=== PATIENT | male | born 1970 | race Caucasian/White ===

== ENCOUNTER → 2018-12-21 | Outpatient (CLI) | payer MEDICAID, OTHER ==
[~2018-12-21] MED LIST: /ADVA50050; ALBU83IN; GABA300T; HYDR50TA8; NICO21DI4; TRAM50TA2; VENTAER
--- NOTE | 2018-12-21 11:08 | REP ---
Chest two views HISTORY: Wheezing Comparison: 12/15/2012 Minimal peribronchial cuffing is present. The heart is normal in size. The pulmonary vasculature is normal in appearance. The bony structure is intact. IMPRESSION: There is minimal peribronchial cuffing consistent with asthma or bronchitis. Electronically Signed by Roque Bridges MD 12/21/2018 11:00 A
== END ==
LOC: M RAD 10:15
PROVIDERS: ATTEND Family Medicine
DX: R06.2 Wheezing (principal)

== ENCOUNTER → 2020-05-07 | Outpatient (CLI) | payer MEDICAID, OTHER ==
[~2020-05-07] MED LIST changes: -/ADVA50050; +ADVA1AER2
--- NOTE | 2020-05-07 13:27 | PFTRPT ---
Visit Date: 05/07/2020 Referring Doctor: MD Yepez David Height: 73.00 Inches Weight: 240.00 Lbs BSA: 2.33 Diagnosis: R06 Pre and postbronchodilator study of excellent technical quality. Forced vital capacity reduced. FEV1 out of proportion. Obstructive index is therefore reduced. Expiratory limb of the flow volume loop does suggest some degree of flow rate limitation. Only borderline bronchodilator response is identified. Total lung capacity is normal. Residual volume suggests air trapping. Diffusing capacity is reduced, but is appropriate for alveolar volume. Hemoglobin acceptable at 12.6. Airways resistance is elevated with concomitant decrease in airway conductance. IMPRESSION: Underlying obstructive ventilatory impairment with concomitant air trapping. Mild diffusing capacity appropriate for alveolar volume. Please correlate clinically. MTDD
== END ==
LOC: M CARPUL 12:12
PROVIDERS: ATTEND Internal Medicine Cardiovascular Disease
DX: R06.00 Dyspnea, unspecified (principal)

== ENCOUNTER → 2020-12-19 | Outpatient (CLI) | payer OTHER ==
--- NOTE | 2020-12-19 10:20 | REP ---
INDICATION: M25.522 PAIN IN LT ELBOW. COMPARISON: None. TECHNIQUE: Four views of the left elbow are presented. FINDINGS: Four views of the left elbow demonstrate osteoarthritic spurring at the radiocapitellar and ulnar trochlear articulation. There are at least 2 large osteophytic bodies which may be loose bodies. 1 of these is anterior measuring 12 mm in greatest diameter and the other is posterior measuring 13 mm in greatest diameter. Positioning is less than optimal due to the patient's lack of range of motion. No definite joint effusion.. No fracture or subluxation is seen. No opaque foreign body noted. 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 No fracture or other acute bony abnormality seen.. <Electronically signed by Rodo Tello > 12/19/20 1010
== END ==
LOC: M WUC 09:46
PROVIDERS: ATTEND Physician Assistant
DX: M19.022 Primary osteoarthritis, left elbow (principal)

== ENCOUNTER → 2022-09-06 | Outpatient (CLI) | payer OTHER ==
[2022-09-06 13:06] LABS: BASO # 0.1 10^3/uL (0.0-0.2); BASO % 1.3 % (0.0-1.0); EOS # 0.2 10^3/uL (0.0-0.5); EOS % 1.9 % (0.0-3.0); HEMATOCRIT 48.4 % (42.0-52.0); HEMOGLOBIN 15.6 g/dl (13.5-17.5); LYMPH # 2.1 10^3/uL (1.5-5.0); LYMPH % 26.2 % (24.0-44.0); MEAN CORPUSCULAR HEMOGLOBIN 30.5 pg (27.0-33.0); MEAN CORPUSCULAR HGB CONC 32.2 g/dl (32.0-36.5); MEAN CORPUSCULAR VOLUME 94.5 fl (80.0-96.0); MONO # 0.9 10^3/uL (0.0-0.8); MONO % 11.2 % (2.0-8.0); NEUTROPHILS # 4.6 10^3/uL (1.5-8.5); NEUTROPHILS % 58.9 % (36.0-66.0); PLATELET COUNT, AUTOMATED 300 10^3/uL (150-450); RED BLOOD COUNT 5.12 10^6/uL (4.30-6.10); WHITE BLOOD COUNT 7.9 10^3/uL (4.0-10.0)
[2022-09-06 16:28] LABS: ALBUMIN 3.8 GM/DL (3.2-5.2); ALT/SGPT 28 U/L (12-78); BILIRUBIN,TOTAL 0.4 MG/DL (0.2-1.0); BLOOD UREA NITROGEN 18 MG/DL (7-18); CALCIUM LEVEL 9.8 MG/DL (8.5-10.1); CARBON DIOXIDE LEVEL 28 MEQ/L (21-32); CHLORIDE LEVEL 105 MEQ/L (98-107); CHOLESTEROL LEVEL 151 MG/DL (<200); CHOLESTEROL RISK RATIO 3.595 (<5); CREATININE FOR GFR 1.03 MG/DL (0.70-1.30); GLOMERULAR FILTRATION RATE > 60.0 (>60); GLUCOSE, FASTING 87 MG/DL (70-100); HDL CHOLESTEROL 42 MG/DL (>40); LDL CHOLESTEROL 80 MG/DL (<100); NON-HDL-C 109 MG/DL; POTASSIUM SERUM 4.3 MEQ/L (3.5-5.1); SODIUM LEVEL 138 MEQ/L (136-145); TOTAL PROTEIN 6.9 GM/DL (6.4-8.2); TRIGLYCERIDES LEVEL 145 MG/DL (<150)
== END ==
LOC: M WUC 09:05
PROVIDERS: ATTEND Physician Assistant
DX: E78.2 Mixed hyperlipidemia (principal); Z68.36 Body mass index [BMI] 36.0-36.9, adult; M24.442 Recurrent dislocation, left hand

== ENCOUNTER → 2023-02-14 | Outpatient (CLI) | payer OTHER | LOC: M PLAIMG 13:57 | PROVIDERS: ATTEND Pain Medicine Interventional Pain Medicine | DX: M54.16 Radiculopathy, lumbar region (principal) ==

== ENCOUNTER → 2023-03-04 | Outpatient (CLI) | payer OTHER | LOC: M RAD 06:34 | PROVIDERS: ATTEND Pain Medicine Interventional Pain Medicine | DX: M54.2 Cervicalgia (principal) ==

== ENCOUNTER → 2023-04-15 | Outpatient (CLI) | payer OTHER ==
[~2023-04-15] MED LIST changes: +ISOVUE-370 76% 100ML VIAL As Ordered ONE
== END ==
LOC: M RAD 08:51
PROVIDERS: ATTEND Otolaryngology
DX: K13.79 Other lesions of oral mucosa (principal)
CPT/HCPCS: 70491; Q9967

== ENCOUNTER 2023-05-19 09:00 | Day surgery (SDC) | payer OTHER ==
[~2023-05-19] VITALS: Ht 182.9 cm; Wt 118.1 kg
[~2023-05-19 09:00] MED LIST changes: +ACET500T15 PO; +IBUP200C90 PO; -ISOVUE-370 76% 100ML VIAL As Ordered ONE; +NS 1,000 ML IV ONE
[2023-05-19] MEDS ORDERED: BUDE10.7 IH (09:34)
[2023-05-19] MEDS ORDERED: ALBU2.5V10 INH (09:34)
[2023-05-19] MEDS ORDERED: LIDOCAINE 2% 100MG/5ML SDV (FOR ANES.) As Ordered ONE (10:09)
[2023-05-19] MEDS ORDERED: propofoL 500 MG/50 ML VIAL As Ordered ONE ×2 (10:09→10:34)
[2023-05-19 10:36] VITALS: TEMP 97.5
[2023-05-19 10:50] VITALS: BP 151/82; O2SAT 97
== END 2023-05-19 10:56 | disposition home or self-care (01) ==
LOC: M OPP 09:00
PROVIDERS: ATTEND Surgery
DX: Z12.11 Encounter for screening for malignant neoplasm of colon (principal); D12.6 Benign neoplasm of colon, unspecified; F17.200 Nicotine dependence, unspecified, uncomplicated

== ENCOUNTER → 2023-06-02 | Outpatient (CLI) | payer OTHER ==
[~2023-06-02] MED LIST changes: +ALBU2.5V10 INH; +BUDE10.7 IH; -NS 1,000 ML IV ONE
== END ==
LOC: M WUC 14:37
PROVIDERS: ATTEND Family Medicine
DX: S60.414A Abrasion of right ring finger, initial encounter (principal); Y93.9 Activity, unspecified; Y92.9 Unspecified place or not applicable

== ENCOUNTER → 2023-06-22 | Outpatient (CLI) | payer OTHER ==
[~2023-06-22] MED LIST changes: +GASTROGRAFIN SOLUTION 30ML As Ordered ONE; +ISOVUE-370 76% 100ML VIAL As Ordered ONE
== END ==
LOC: M RAD 08:03
PROVIDERS: ATTEND Physician Assistant
DX: R14.0 Abdominal distension (gaseous) (principal); R68.81 Early satiety
CPT/HCPCS: 74178; Q9963; Q9967

== ENCOUNTER 2023-06-27 06:07 | Day surgery (SDC) | payer OTHER ==
[~2023-06-27] VITALS: Ht 182.9 cm; Wt 117.9 kg
[~2023-06-27 06:07] MED LIST changes: +CEPH500C PO; +EXCETAB32 PO; -GASTROGRAFIN SOLUTION 30ML As Ordered ONE; -ISOVUE-370 76% 100ML VIAL As Ordered ONE; +LISI10TA24 PO; +NYST1CRE15 TOP; +ROSU20TA61 PO
[2023-06-27] MEDS ORDERED: KETOROLAC 60MG 2ML VIAL As Ordered ONE (06:57)
[2023-06-27] MEDS ORDERED: ONDANSETRON 4MG 2ML VIAL As Ordered ONE (06:57)
[2023-06-27] MEDS ORDERED: LIDOCAINE 2% 100MG/5ML SDV (FOR ANES.) As Ordered ONE (06:57)
[2023-06-27] MEDS ORDERED: propofoL 200 MG/20 ML VIAL As Ordered ONE (06:57)
[2023-06-27] MEDS ORDERED: fentaNYL 100 MCG/2 ML INJECTION As Ordered ONE (06:58)
[2023-06-27] MEDS ORDERED: MIDAZOLAM INJ 2MG/2ML VIAL As Ordered ONE (06:58)
[2023-06-27 07:02] LABS: HEMATOCRIT 49.4 % (42.0-52.0); HEMOGLOBIN 16.2 g/dl (13.5-17.5); MEAN CORPUSCULAR HEMOGLOBIN 29.5 pg (27.0-33.0); MEAN CORPUSCULAR HGB CONC 32.8 g/dl (32.0-36.5); PLATELET COUNT, AUTOMATED 258 10^3/uL (150-450); RED BLOOD COUNT 5.49 10^6/uL (4.30-6.10); WHITE BLOOD COUNT 7.8 10^3/uL (4.0-10.0)
[2023-06-27 07:15] LABS: BLOOD UREA NITROGEN 17 MG/DL (9-23); CALCIUM LEVEL 9.7 MG/DL (8.5-10.1); CARBON DIOXIDE LEVEL 28 MMOL/L (20-31); CHLORIDE LEVEL 105 MMOL/L (98-107); CREATININE FOR GFR 0.97 MG/DL (0.70-1.30); GLOMERULAR FILTRATION RATE > 60.0 (>56); GLUCOSE, FASTING 105 MG/DL (60-100); POTASSIUM SERUM 4.1 MMOL/L (3.5-5.1); SODIUM LEVEL 137 MMOL/L (136-145)
[2023-06-27] MEDS ORDERED: BACITRACIN OINTMENT 30GM TUBE As Ordered ONE (07:15)
[2023-06-27] MEDS ORDERED: ceFAZolin 2 GM/D5W 50 ML IV BAG As Ordered ONE (07:46)
[2023-06-27] MEDS ORDERED: LR 1,000 ML IV SCH (08:35)
[2023-06-27] MEDS ORDERED: LIDOCAINE 1% SDV 5ML VIAL SC PRN (08:35)
[2023-06-27] MEDS ORDERED: CEPH500T PO (08:51)
[2023-06-27] MEDS ORDERED: PERC5TAB12 PO (08:51)
[2023-06-27 09:52] VITALS: BP 140/69; TEMP 97.4; O2SAT 95
== END 2023-06-27 09:52 | disposition home or self-care (01) ==
LOC: M SDC 06:07
PROVIDERS: ATTEND Orthopaedic Surgery Hand Surgery
DX: M85.841 Other specified disorders of bone density and structure, right hand (principal); B95.7 Other staphylococcus as the cause of diseases classified elsewhere; S60.944A Unspecified superficial injury of right ring finger, initial encounter; X58.XXXA Exposure to other specified factors, initial encounter; Y92.89 Other specified places as the place of occurrence of the external cause; G47.30 Sleep apnea, unspecified
CPT/HCPCS: 11044; 36415; 76000; 80048; 85027; 87070; 87075; 87077; 87186; 87205; 93005; J0665; J0690; J1100; J1885; J2250; J2405; J3010

== ENCOUNTER → 2023-07-07 | Outpatient (CLI) | payer OTHER ==
[~2023-07-07] MED LIST changes: +CEPH500T PO; +PERC5TAB12 PO
== END ==
LOC: M SOG 13:27
PROVIDERS: ATTEND Physician Assistant
DX: S60.94 Unspecified superficial injury of other fingers (principal)

== ENCOUNTER → 2023-07-19 | Outpatient (CLI) | payer OTHER ==
[2023-07-19 14:19] LABS: BASO # 0.1 10^3/uL (0.0-0.2); BASO % 0.7 % (0.0-1.0); EOS # 0.2 10^3/uL (0.0-0.5); EOS % 1.9 % (0.0-3.0); HEMATOCRIT 48.5 % (42.0-52.0); HEMOGLOBIN 15.7 g/dl (13.5-17.5); LYMPH # 2.3 10^3/uL (1.5-5.0); LYMPH % 26.9 % (24.0-44.0); MEAN CORPUSCULAR HEMOGLOBIN 30.1 pg (27.0-33.0); MEAN CORPUSCULAR HGB CONC 32.4 g/dl (32.0-36.5); MEAN CORPUSCULAR VOLUME 92.9 fl (80.0-96.0); MONO # 0.9 10^3/uL (0.0-0.8); MONO % 10.8 % (2.0-8.0); NEUTROPHILS % 59.2 % (36.0-66.0); PLATELET COUNT, AUTOMATED 262 10^3/uL (150-450); RED BLOOD COUNT 5.22 10^6/uL (4.30-6.10); WHITE BLOOD COUNT 8.4 10^3/uL (4.0-10.0)
[2023-07-19 14:47] LABS: ERYTHROCYTE SEDIMENTATION RATE 15 mm/hr (0-20)
[2023-07-19 14:59] LABS: HEPATITIS C VIRUS ABY INDEX 0.12 INDEX (<0.8)
[2023-07-19 15:03] LABS: HEMOGLOBIN A1c 5.3 % (4.0-6.0)
== END ==
LOC: M PLALAB 10:05
PROVIDERS: ATTEND Internal Medicine Infectious Disease
DX: L81.8 Other specified disorders of pigmentation (principal); M86.9 Osteomyelitis, unspecified

== ENCOUNTER → 2023-08-08 | Outpatient (CLI) | payer OTHER ==
[~2023-08-08] MED LIST changes: +DOXY-444 PO; +KETO10TAB PO; +METH-1165 PO
== END ==
LOC: M SOG 08:03
PROVIDERS: ATTEND Physician Assistant
DX: S60.94 Unspecified superficial injury of other fingers (principal)

== ENCOUNTER 2023-08-10 07:29 | Day surgery (SDC) | payer OTHER ==
[~2023-08-10] VITALS: Ht 185.4 cm; Wt 118.4 kg
[~2023-08-10 07:29] MED LIST changes: +NS 1,000 ML IV ONE
[2023-08-10] MEDS ORDERED: propofoL 500 MG/50 ML VIAL As Ordered ONE (09:26)
[2023-08-10] MEDS ORDERED: fentaNYL 100 MCG/2 ML INJECTION As Ordered ONE (09:26)
[2023-08-10] MEDS ORDERED: LIDOCAINE 2% 100MG/5ML SDV (FOR ANES.) As Ordered ONE (09:26)
[2023-08-10 09:44] VITALS: TEMP 97.4
[2023-08-10 10:05] VITALS: BP 140/78; O2SAT 96
== END 2023-08-10 10:16 | disposition home or self-care (01) ==
LOC: M OPP 07:29
PROVIDERS: ATTEND Surgery
DX: K44.9 Diaphragmatic hernia without obstruction or gangrene (principal); K29.70 Gastritis, unspecified, without bleeding; K26.9 Duodenal ulcer, unspecified as acute or chronic, without hemorrhage or perforation; K25.9 Gastric ulcer, unspecified as acute or chronic, without hemorrhage or perforation; R10.84 Generalized abdominal pain; R14.0 Abdominal distension (gaseous)
CPT/HCPCS: 43239; 88305; J3010

== ENCOUNTER → 2023-08-23 | Outpatient (CLI) | payer OTHER ==
[~2023-08-23] MED LIST changes: -NS 1,000 ML IV ONE
[2023-08-23 13:19] LABS: BASO # 0.1 10^3/uL (0.0-0.2); BASO % 1.3 % (0.0-1.0); EOS # 0.1 10^3/uL (0.0-0.5); EOS % 1.9 % (0.0-3.0); HEMATOCRIT 48.6 % (42.0-52.0); HEMOGLOBIN 16.1 g/dl (13.5-17.5); LYMPH # 2.5 10^3/uL (1.5-5.0); LYMPH % 33.3 % (24.0-44.0); MEAN CORPUSCULAR HEMOGLOBIN 30.2 pg (27.0-33.0); MEAN CORPUSCULAR HGB CONC 33.1 g/dl (32.0-36.5); MEAN CORPUSCULAR VOLUME 91.2 fl (80.0-96.0); MONO # 0.9 10^3/uL (0.0-0.8); MONO % 12.4 % (2.0-8.0); NEUTROPHILS # 3.8 10^3/uL (1.5-8.5); NEUTROPHILS % 50.8 % (36.0-66.0); PLATELET COUNT, AUTOMATED 270 10^3/uL (150-450); RED BLOOD COUNT 5.33 10^6/uL (4.30-6.10); WHITE BLOOD COUNT 7.4 10^3/uL (4.0-10.0)
== END ==
LOC: M WUC 09:59
PROVIDERS: ATTEND Internal Medicine Infectious Disease
DX: M86.9 Osteomyelitis, unspecified (principal)

== ENCOUNTER → 2023-09-01 | Outpatient (CLI) | payer OTHER | LOC: M SOG 07:47 | PROVIDERS: ATTEND Physician Assistant | DX: S60.94 Unspecified superficial injury of other fingers (principal); W18.30XD Fall on same level, unspecified, subsequent encounter ==

== ENCOUNTER → 2023-11-16 | Outpatient (REF) | LOC: M PLAIMG 13:32 | PROVIDERS: ATTEND Internal Medicine | DX: M41.87 Other forms of scoliosis, lumbosacral region (principal); M47.897 Other spondylosis, lumbosacral region; M19.022 Primary osteoarthritis, left elbow ==

== ENCOUNTER → 2024-01-21 | Outpatient (CLI) | payer OTHER | LOC: M RAD 12:41 | PROVIDERS: ATTEND Physician Assistant | DX: M51.36 Other intervertebral disc degeneration, lumbar region (principal); M47.816 Spondylosis without myelopathy or radiculopathy, lumbar region ==

== ENCOUNTER 2024-04-03 08:51 | Emergency (ER) | payer OTHER ==
[~2024-04-03] VITALS: Ht 182.9 cm; Wt 121.2 kg
[~2024-04-03 08:51] MED LIST changes: +DOXY-440 PO; -DOXY-444 PO
[2024-04-03 08:52] VITALS: BP 166/77; TEMP 96.9; O2SAT 98
[2024-04-03] MEDS ORDERED: NAPR375T5 PO (08:59)
[2024-04-03] MEDS ORDERED: OMEP40CA4 PO (08:59)
[2024-04-03] MEDS ORDERED: CELE1CAP99 PO (08:59)
[2024-04-03] MEDS ORDERED: LINZ290C PO (08:59)
[2024-04-03] MEDS ORDERED: CYCL25CA5 PO (08:59)
[2024-04-03] MEDS ORDERED: BUPR-69 PO (08:59)
[2024-04-03] MEDS ORDERED: AMIT50TA PO (08:59)
[2024-04-03] MEDS: DOXYCYCLINE HYCLATE 100 MG in D5W MINI-BAG PLUS 100 ML IV ONE (12:13)
[2024-04-03] MEDS ORDERED: ISOVUE-370 76% 100ML VIAL As Ordered ONE (12:28)
[2024-04-03 12:55] LABS: BASO # 0.1 10^3/uL (0.0-0.2); EOS # 0.2 10^3/uL (0.0-0.5); EOS % 2.3 % (0.0-3.0); HEMATOCRIT 47.9 % (42.0-52.0); HEMOGLOBIN 16.1 g/dl (13.5-17.5); LYMPH # 2.3 10^3/uL (1.5-5.0); LYMPH % 26.4 % (24.0-44.0); MEAN CORPUSCULAR HEMOGLOBIN 30.4 pg (27.0-33.0); MEAN CORPUSCULAR HGB CONC 33.6 g/dl (32.0-36.5); MEAN CORPUSCULAR VOLUME 90.5 fl (80.0-96.0); MONO # 0.9 10^3/uL (0.0-0.8); MONO % 10.1 % (2.0-8.0); NEUTROPHILS # 5.3 10^3/uL (1.5-8.5); RED BLOOD COUNT 5.29 10^6/uL (4.30-6.10); WHITE BLOOD COUNT 8.8 10^3/uL (4.0-10.0)
[2024-04-03] MEDS: LIDOCAINE 1% MDV 20ML VIAL SC ONE (13:40)
[2024-04-03] MEDS ORDERED: DOXY-323 PO (14:26)
[2024-04-03 14:33] LABS: PLATELET COUNT, AUTOMATED 234 10^3/uL (150-450)
== END 2024-04-03 14:39 | disposition home or self-care (01) ==
LOC: M ED 09:51
DX: L02.214 Cutaneous abscess of groin (principal); F17.210 Nicotine dependence, cigarettes, uncomplicated; Z79.51 Long term (current) use of inhaled steroids; Z79.899 Other long term (current) drug therapy; Z79.2 Long term (current) use of antibiotics
CPT/HCPCS: 72193; 80047; 85025; 87070; 87076; 87205; 96374; 99283; Q9967

== ENCOUNTER → 2024-04-13 | Outpatient (CLI) | payer OTHER ==
[~2024-04-13] MED LIST changes: +AMIT50TA PO; +BUPR-69 PO; +CELE1CAP99 PO; +CYCL25CA5 PO; +DOXY-323 PO; +LINZ290C PO; +NAPR375T5 PO; +OMEP40CA4 PO
== END ==
LOC: M WUC 11:59
PROVIDERS: ATTEND Family Medicine
DX: J44.9 Chronic obstructive pulmonary disease, unspecified (principal); R06.02 Shortness of breath

== ENCOUNTER → 2024-06-19 | Outpatient (CLI) | payer OTHER ==
[2024-06-19 13:18] LABS: BASO # 0.1 10^3/uL (0.0-0.2); BASO % 1.1 % (0.0-1.0); EOS # 0.2 10^3/uL (0.0-0.5); EOS % 1.9 % (0.0-3.0); HEMOGLOBIN 15.1 g/dl (13.5-17.5); LYMPH # 2.4 10^3/uL (1.5-5.0); LYMPH % 30.6 % (24.0-44.0); MEAN CORPUSCULAR HGB CONC 32.8 g/dl (32.0-36.5); MEAN CORPUSCULAR VOLUME 91.5 fl (80.0-96.0); MONO # 0.8 10^3/uL (0.0-0.8); MONO % 9.8 % (2.0-8.0); NEUTROPHILS # 4.4 10^3/uL (1.5-8.5); NEUTROPHILS % 56.3 % (36.0-66.0); PLATELET COUNT, AUTOMATED 277 10^3/uL (150-450); RED BLOOD COUNT 5.03 10^6/uL (4.30-6.10); WHITE BLOOD COUNT 7.9 10^3/uL (4.0-10.0)
[2024-06-19 13:20] LABS: APPEARANCE, URINE CLEAR (CLEAR); BACTERIA, URINE AUTO NEGATIVE (NEGATIVE); BILIRUBIN, URINE AUTO NEGATIVE (NEGATIVE); BLOOD, URINE BLOOD NEGATIVE (NEGATIVE); COLOR, URINE YELLOW (YELLOW); GLUCOSE, URINE (UA) AUTO NEGATIVE (NEGATIVE); KETONE, URINE AUTO NEGATIVE (NEGATIVE); LEUKOCYTE ESTERASE, URINE AUTO NEGATIVE (NEGATIVE); MUCUS, URINE SMALL (NEGATIVE); NITRITE, URINE AUTO NEGATIVE (NEGATIVE); PROTEIN, URINE AUTO NEGATIVE (NEGATIVE); RBC, URINE AUTO 1 /HPF (0-3); SPECIFIC GRAVITY URINE AUTO 1.015 (1.002-1.035); SQUAMOUS EPITHELIAL CELL UR AU 0 /HPF (0-6); UROBILINOGEN, URINE AUTO 0.2 mg/dL (0.0-2.0); WBC, URINE AUTO 0 /HPF (0-3)
[2024-06-19 13:52] LABS: ALBUMIN 4.1 G/DL (3.2-5.2); ALKALINE PHOSPHATASE 98 U/L (46-116); ALT/SGPT 35 U/L (7.0-40); AST/SGOT 20 U/L (<34); BILIRUBIN,TOTAL 0.7 MG/DL (0.3-1.2); BLOOD UREA NITROGEN 23 MG/DL (9-23); CALCIUM LEVEL 9.4 MG/DL (8.5-10.1); CARBON DIOXIDE LEVEL 29 MMOL/L (20-31); CHLORIDE LEVEL 105 MMOL/L (98-107); CHOLESTEROL LEVEL 99 MG/DL (<200); CHOLESTEROL RISK RATIO 3.35 (<5); CREATININE FOR GFR 1.19 MG/DL (0.70-1.30); GLOMERULAR FILTRATION RATE > 60.0 (>56); GLUCOSE, FASTING 113 MG/DL (60-100); HDL CHOLESTEROL 29.5 MG/DL (>40); LDL CHOLESTEROL 44.1 MG/DL (<100); NON-HDL-C 69.5 MG/DL; POTASSIUM SERUM 3.9 MMOL/L (3.5-5.1); SODIUM LEVEL 137 MMOL/L (136-145); TOTAL PROTEIN 6.6 G/DL (5.7-8.2); TRIGLYCERIDES LEVEL 127 MG/DL (<150)
== END ==
LOC: M PLALAB 10:34
PROVIDERS: ATTEND Family Medicine
DX: J44.9 Chronic obstructive pulmonary disease, unspecified (principal); I10 Essential (primary) hypertension; E78.5 Hyperlipidemia, unspecified

== ENCOUNTER → 2024-07-05 | Outpatient (CLI) | payer MEDICAID, OTHER | LOC: M RAD 07:51 | PROVIDERS: ATTEND Physician Assistant | DX: F17.218 Nicotine dependence, cigarettes, with other nicotine-induced disorders (principal) ==

== ENCOUNTER → 2024-09-20 | Outpatient (CLI) | payer OTHER ==
[~2024-09-20] MED LIST changes: -DOXY-323 PO; +DOXY-441 PO; +NAPR-1450 PO; -NAPR375T5 PO; -ROSU20TA61 PO; +ROSU20TA86 PO
[2024-09-20 14:42] LABS: APPEARANCE, URINE CLEAR (CLEAR); BACTERIA, URINE AUTO NEGATIVE (NEGATIVE); BILIRUBIN, URINE AUTO NEGATIVE (NEGATIVE); BLOOD, URINE BLOOD NEGATIVE (NEGATIVE); COLOR, URINE YELLOW (YELLOW); GLUCOSE, URINE (UA) AUTO 1+ mg/dL (NEGATIVE); KETONE, URINE AUTO NEGATIVE (NEGATIVE); LEUKOCYTE ESTERASE, URINE AUTO NEGATIVE (NEGATIVE); MUCUS, URINE SMALL (NEGATIVE); NITRITE, URINE AUTO NEGATIVE (NEGATIVE); PROTEIN, URINE AUTO NEGATIVE (NEGATIVE); RBC, URINE AUTO 0 /HPF (0-3); SPECIFIC GRAVITY URINE AUTO 1.014 (1.002-1.035); SQUAMOUS EPITHELIAL CELL UR AU 0 /HPF (0-6); UROBILINOGEN, URINE AUTO 0.2 mg/dL (0.0-2.0); WBC, URINE AUTO 0 /HPF (0-3)
[2024-09-20 14:43] LABS: BASO # 0.1 10^3/uL (0.0-0.2); BASO % 1.1 % (0.0-1.0); EOS # 0.2 10^3/uL (0.0-0.5); EOS % 2.1 % (0.0-3.0); HEMOGLOBIN 15.7 g/dl (13.5-17.5); LYMPH # 2.4 10^3/uL (1.5-5.0); LYMPH % 30.5 % (24.0-44.0); MEAN CORPUSCULAR HEMOGLOBIN 30.1 pg (27.0-33.0); MEAN CORPUSCULAR HGB CONC 32.7 g/dl (32.0-36.5); MEAN CORPUSCULAR VOLUME 92.1 fl (80.0-96.0); MONO % 12.1 % (2.0-8.0); NEUTROPHILS # 4.3 10^3/uL (1.5-8.5); NEUTROPHILS % 53.8 % (36.0-66.0); PLATELET COUNT, AUTOMATED 294 10^3/uL (150-450); RED BLOOD COUNT 5.21 10^6/uL (4.30-6.10)
[2024-09-20 15:15] LABS: ALKALINE PHOSPHATASE 107 U/L (40-129); ALT/SGPT 26 U/L (7.0-40); AST/SGOT 13 U/L (<34); BILIRUBIN,TOTAL 0.3 MG/DL (0.3-1.2); BLOOD UREA NITROGEN 20 MG/DL (9-23); CALCIUM LEVEL 9.7 MG/DL (8.5-10.1); CARBON DIOXIDE LEVEL 29 MMOL/L (20-31); CHLORIDE LEVEL 105 MMOL/L (98-107); CHOLESTEROL LEVEL 128 MG/DL (<200); CHOLESTEROL RISK RATIO 3.47 (<5); CREATININE FOR GFR 1.12 MG/DL (0.70-1.30); GLOMERULAR FILTRATION RATE > 60.0 (>56); GLUCOSE, FASTING 86 MG/DL (60-100); HDL CHOLESTEROL 36.8 MG/DL (>40); LDL CHOLESTEROL 60.8 MG/DL (<100); NON-HDL-C 91.2 MG/DL; POTASSIUM SERUM 4.2 MMOL/L (3.5-5.1); PROSTATIC SPECIFIC AG MONITOR 0.68 NG/ML (< 4.00); SODIUM LEVEL 138 MMOL/L (136-145); TOTAL PROTEIN 7.2 G/DL (5.7-8.2); TRIGLYCERIDES LEVEL 152 MG/DL (<150)
== END ==
LOC: M PLALAB 10:38
PROVIDERS: ATTEND Family Medicine
DX: E78.5 Hyperlipidemia, unspecified (principal)

== ENCOUNTER → 2025-07-16 | Outpatient (CLI) | payer MEDICARE, OTHER ==
[2025-07-16 15:42] LABS: BASO # 0.1 10^3/uL (0.0-0.2); BASO % 1.2 % (0.0-1.0); EOS # 0.1 10^3/uL (0.0-0.5); EOS % 1.3 % (0.0-3.0); LYMPH # 1.4 10^3/uL (1.5-5.0); LYMPH % 18.9 % (24.0-44.0); MONO # 0.6 10^3/uL (0.0-0.8); MONO % 8.3 % (2.0-8.0); NEUTROPHILS # 5.3 10^3/uL (1.5-8.5); NEUTROPHILS % 69.9 % (36.0-66.0); PLATELET COUNT, AUTOMATED 303 10^3/uL (150-450)
[2025-07-16 16:04] LABS: ESTIMATED AVERAGE GLUCOSE 126.0 MG/DL (60-110)
[2025-07-16 16:13] LABS: CREATININE, URINE 24.6 MG/DL
[2025-07-16 16:14] LABS: MALB URINE SIEMENS < 3.0 MG/L
[2025-07-16 16:15] LABS: ALT/SGPT 32.0 U/L (7.0-40); AST/SGOT 21.0 U/L (<34); CALCIUM LEVEL 9.3 MG/DL (8.5-10.1); CARBON DIOXIDE LEVEL 30.0 MMOL/L (20-31); CHLORIDE LEVEL 103.0 MMOL/L (98-107); CHOLESTEROL LEVEL 107.0 MG/DL (<200); CHOLESTEROL RISK RATIO 2.89 (<5); CREATININE FOR GFR 1.26 MG/DL (0.70-1.30); GLOMERULAR FILTRATION RATE 68.6 (>56); LDL CHOLESTEROL 48.3 MG/DL (<100); NON-HDL-C 70.1 MG/DL; POTASSIUM SERUM 4.1 MMOL/L (3.5-5.1); SODIUM LEVEL 138.0 MMOL/L (136-145); TRIGLYCERIDES LEVEL 109.0 MG/DL (<150)
== END ==
LOC: M WUC 10:59
PROVIDERS: ATTEND Family Medicine
DX: I10 Essential (primary) hypertension (principal); E78.5 Hyperlipidemia, unspecified; J44.9 Chronic obstructive pulmonary disease, unspecified; R73.09 Other abnormal glucose

== ENCOUNTER → 2025-08-01 | Outpatient (CLI) | payer MEDICARE | LOC: M RAD 07:21 | PROVIDERS: ATTEND Physician Assistant | DX: F17.218 Nicotine dependence, cigarettes, with other nicotine-induced disorders (principal) ==

== ENCOUNTER → 2025-09-03 | Outpatient (CLI) | payer MEDICARE, MEDICAID | LOC: M PLAIMG 06:42 | PROVIDERS: ATTEND Pain Medicine Interventional Pain Medicine | DX: M54.12 Radiculopathy, cervical region (principal); M47.814 Spondylosis without myelopathy or radiculopathy, thoracic region ==

== ENCOUNTER → 2025-10-22 | Outpatient (CLI) | payer MEDICARE, MEDICAID ==
[2025-10-22 13:35] LABS: ALT/SGPT 30.0 U/L (7.0-40); AST/SGOT 20.0 U/L (<34); CALCIUM LEVEL 9.4 MG/DL (8.5-10.1); CARBON DIOXIDE LEVEL 29.0 MMOL/L (20-31); CHLORIDE LEVEL 103.0 MMOL/L (98-107); CREATININE FOR GFR 1.13 MG/DL (0.70-1.30); GLOMERULAR FILTRATION RATE 78.2 (>56); POTASSIUM SERUM 3.9 MMOL/L (3.5-5.1); SODIUM LEVEL 138.0 MMOL/L (136-145)
[2025-10-22 13:39] LABS: BASO # 0.1 10^3/uL (0.0-0.2); BASO % 1.4 % (0.0-1.0); EOS # 0.2 10^3/uL (0.0-0.5); EOS % 2.3 % (0.0-3.0); LYMPH # 2.2 10^3/uL (1.5-5.0); LYMPH % 33.1 % (24.0-44.0); MONO # 0.5 10^3/uL (0.0-0.8); MONO % 7.9 % (2.0-8.0); NEUTROPHILS # 3.6 10^3/uL (1.5-8.5); NEUTROPHILS % 55.0 % (36.0-66.0); PLATELET COUNT, AUTOMATED 305 10^3/uL (150-450)
[2025-10-22 13:52] LABS: APPEARANCE, URINE HAZY (CLEAR); BACTERIA, URINE AUTO NEGATIVE (NEGATIVE); BILIRUBIN, URINE AUTO NEGATIVE (NEGATIVE); BLOOD, URINE BLOOD 1+ (NEGATIVE); GLUCOSE, URINE (UA) AUTO 1+ mg/dL (NEGATIVE); KETONE, URINE AUTO NEGATIVE (NEGATIVE); LEUKOCYTE ESTERASE, URINE AUTO NEGATIVE (NEGATIVE); MUCUS, URINE SMALL (NEGATIVE); NITRITE, URINE AUTO NEGATIVE (NEGATIVE); PROTEIN, URINE AUTO NEGATIVE (NEGATIVE); RBC, URINE AUTO 1 /HPF (0-3); SPECIFIC GRAVITY URINE AUTO 1.009 (1.002-1.035); SQUAMOUS EPITHELIAL CELL UR AU 0 /HPF (0-6); UROBILINOGEN, URINE AUTO 0.2 mg/dL (0.0-2.0); WBC, URINE AUTO 0 /HPF (0-3)
== END ==
LOC: M PLALAB 09:46
PROVIDERS: ATTEND Family Medicine
DX: I10 Essential (primary) hypertension (principal); E78.5 Hyperlipidemia, unspecified; J44.9 Chronic obstructive pulmonary disease, unspecified